=== PATIENT | female | born 1950 | race Caucasian/White ===

== ENCOUNTER → 2016-09-27 | Outpatient (CLI) | payer OTHER | END | disposition home or self-care (01) | LOC: LAB 11:36 | PROVIDERS: ATTEND General Practice | DX: N39.0 Urinary tract infection, site not specified (principal) ==

== ENCOUNTER → 2017-05-20 | Outpatient (CLI) | payer OTHER | END | disposition home or self-care (01) | LOC: GMA 16:38 | PROVIDERS: ATTEND Physician Assistant | DX: N39.0 Urinary tract infection, site not specified (principal) ==

== ENCOUNTER → 2018-08-12 | Outpatient (CLI) | payer OTHER ==
--- NOTE | 2018-08-12 19:31 | MRI ---
EXAM DESCRIPTION: Lumbar Spine w/o Contrast : Magnetic Resonance Imaging. CLINICAL HISTORY: DISC DISPLACEMENT COMPARISON: MRI scan lumbar spine without contrast 12/24/2011. MRI scan of the cervical spine 07/07/2012. MRI scan thoracic spine without contrast 03/02/2012. CT scan of the abdomen 04/13/2008. TECHNIQUE: Multiplanar, multiple standard sequences, non contrast MRI, lumbar spine. FINDINGS: After reviewing the previous examinations mentioned in the COMPARISON paragraph, It is evident that there are 7 cervical type vertebra with no ribs, 12 thoracic type vertebra with bilateral ribs, and 6 lumbar type vertebra with no ribs and no sacralization. 6 lumbar vertebra are also seen on the current examination with no ribs and no sacralization. For the purposes of this report, the designated L6-S1 disc space is visualized on T2 axial series image 3. The designated L5-L6 vertebra is visualized on T2 axial series image 8. The conus where it is visible on the examinations, terminates just below the T12-L1 disc space. L6-S1: Disc desiccation and minimal disc space loss. Hyperintense T2 signal in the posterior right margin consistent with an annular fissure. Mild bony canal narrowing. Tiny posterior disc bulge. Minimal facet joint arthrosis and hypertrophy with the flavum ligaments. Bilateral moderate canal narrowing more on the right. Right anterior and lateral disc bulge. Posterior lateral disc abutting the right L6 nerve. This has progressed since the prior study. L5-L6: Modic type III endplate reactive changes to the right of midline at L5-L6 with disc space narrowing and disc desiccation. Disc osteophyte complex is encroaching on the foramen and abutting the right L5 nerve. Facet arthrosis and hypertrophy with the right flavum ligament with minimal narrowing of the right subarticular recess and the right side of the canal. Partial left L5 laminectomy. Posterior soft tissue postsurgical changes. No significant changes to prior study. L4-L5: Minimal disc desiccation and tiny posterior broad-based bulge. Disc space maintained. Bilateral flavum ligament hypertrophy. Mild canal narrowing. Mild foraminal narrowing more on the right. Unchanged. L3-L4: Normal signal in the disc with disc space preserved. Canal and foramina are patent. Minimal hypertrophy of the flavum ligaments. Facets are unremarkable. L2-L3: Normal signal in the disc with disc space preserved. No bulging. Posterior elements unremarkable. Bilateral foramina are patent. L1-L2: Disc desiccation and minimal disc space narrowing to the left of midline. No significant bulge. Posterior elements are unremarkable. Canal and foramina are patent. Conus terminates at L1. T12-L1: Disc desiccation with anterior left bulging and endplate spur formation. No canal or foraminal stenosis. Dextroscoliosis T12-L3. Levoscoliosis L4-S1. Paravertebral soft tissues paraspinal muscle atrophy. Postsurgical changes posterior to the left L5 partial laminectomy site.. Large partially cystic structure involving the left kidney. This has enlarged since the prior MRI study. Otherwise normal marrow signal in the remaining vertebral bodies and the posterior elements. Vertebral bodies are not compressed at any level. IMPRESSION: 1. Patient has 6 lumbar type vertebra with no radiodense or sacralization. Please see above discussion in the FINDINGS. 2. Desiccated T2 signal in the L6-S1 disc with annular fissure in the posterior right margin. Tiny posterior disc bulge in the canal with larger lateral disc bulge abutting the right L6 nerve. This has progressed since the prior study. 3. Modic type III endplate reactive changes to the right of midline at L5-L6 with disc space narrowing and disc desiccation. This has progressed since the prior study. However disc osteophyte complex on the right abutting the right L5 nerve in the foramen and minimal narrowing of the right subarticular recess showing no significant change since the prior study. Again noted is partial left L5 laminectomy. 4. Left renal cyst is apparently enlarging since the prior MRI scan. Consider evaluation of the kidneys by ultrasound. Electronically signed by: Yordy Carvalho MD 08/12/2018 7:28 PM [facility]
== END ==
LOC: MRI 09:54
PROVIDERS: ATTEND Family Medicine
DX: M51.27 Other intervertebral disc displacement, lumbosacral region (principal); M51.36 Other intervertebral disc degeneration, lumbar region